=== PATIENT | male | born 1950 | race Caucasian/White ===

== ENCOUNTER 2021-02-06 17:53 | Emergency (ER) | payer MEDICARE, BC ==
[~2021-02-06] VITALS: Ht 182.9 cm; Wt 77.1 kg
--- NOTE | 2021-02-06 18:10 | NUR ---
BIBA RA99 "Syncope founs sitting in car. Pt states had episode of being nauseous/vomited prior BS 115 Given 100NS" Patient a/ox4, breathing even and unlabored, no sob noted, attached to the desk monitor. HR in the 50s. Needs attended.
[2021-02-06] MEDS ORDERED: IV LR 1000 ML 1,000 ML IV ONE (18:30)
[2021-02-06] MEDS ORDERED: VALA500T PO (18:44)
[2021-02-06] MEDS ORDERED: ATOR10TA PO (18:44)
[2021-02-06] MEDS ORDERED: VALS40TA4 PO (18:44)
[2021-02-06] MEDS ORDERED: FELO2.5T25 PO (18:44)
[2021-02-06] MEDS ORDERED: FOLI0.8C PO (18:44)
[2021-02-06] MEDS ORDERED: HYDR12.55 PO (18:44)
[2021-02-06] MEDS ORDERED: BUPR450T3 PO (18:44)
--- NOTE | 2021-02-06 19:05 | NUR ---
rec'd report from MARTINA Weiss for kim
[2021-02-06 19:15] LABS: CALCIUM, SERUM 8.9 mg/dL (8.5-10.1); CARBON DIOXIDE 28 mmol/L (21-32); CHLORIDE 108 mmol/L (98-107); CREATININE 1.4 mg/dL (0.6-1.3); GLUCOSE 114 mg/dL (74-106); POTASSIUM 3.7 mmol/L (3.5-5.1); SODIUM SERUM 144 mmol/L (136-145); UREA NITROGEN, BLOOD 41 mg/dL (7-18)
[2021-02-06 19:21] LABS: ALANINE AMINOTRANSFERASE 44 U/L (12-78); ALBUMIN 3.3 g/dL (3.4-5.0); ALKALINE PHOSPHATASE 77 U/L (46-116); ASPARTATE AMINOTRANSFERASE 24 U/L (15-37); BILIRUBIN,DIRECT 0.2 mg/dL (0.0-0.2); BILIRUBIN,TOTAL 0.6 mg/dL (0.2-1.0); TOTAL PROTEIN, SERUM 7.1 g/dL (6.4-8.2)
[2021-02-06 19:57] LABS: EOSINOPHILS % (AUTO) 0.7 % (0.0-6.0); HEMATOCRIT 42 % (39-51); HEMOGLOBIN 14.2 g/dL (13.5-17.5); LYMPHOCYTES # (AUTO) 0.5 /CMM (0.8-4.8); LYMPHOCYTES % (AUTO) 12.4 % (20.0-44.0); MEAN CORPUSCULAR HGB CONC 34 g/dl (31.0-36.0); MEAN CORPUSCULAR VOLUME 97 fL (80-96); MONOCYTES # (AUTO) 0.1 /CMM (0.1-1.30); NEUTROPHILS # (AUTO) 3.8 /CMM (1.8-8.9); NEUTROPHILS % (AUTO) 84.9 % (43.0-81.0); PLATELET COUNT (AUTO) 176 /CMM (150-450); WHITE BLOOD COUNT (AUTO) 4.4 K/uL (4.3-11.0)
--- NOTE | 2021-02-06 20:13 | NUR ---
Patient discharged to home in stable condition. Written and verbal after care instructions given. Patient verbalizes understanding of instruction. IV removed. Catheter intact and site benign. Pressure and 4x4 applied to site. No bleeding noted.Pt ambulatory with a steady gait
[2021-02-06 20:24] VITALS: BP 118/86
== END 2021-02-06 20:13 | disposition home or self-care (01) ==
LOC: ER 19:04
DX: R55 Syncope and collapse (principal); R11.10 Vomiting, unspecified; E78.00 Pure hypercholesterolemia, unspecified; I44.0 Atrioventricular block, first degree; R00.1 Bradycardia, unspecified; I10 Essential (primary) hypertension; Z79.899 Other long term (current) drug therapy
CPT/HCPCS: 36415; 71045; 80048; 80076; 80320; 84484; 85025; 93005; 96360; 99285; J7120 ×2; G0480